=== PATIENT | female | born 1995 | race Caucasian/White ===

== ENCOUNTER 2017-08-24 20:50 | Emergency (ER) | payer OTHER ==
[~2017-08-24] VITALS: Ht 154.9 cm; Wt 70.3 kg
[~2017-08-24 20:50] MED LIST: BENTYL10 M1 PO; ZOFRAN4 M2 SL
--- NOTE | 2017-08-24 21:03 | ED GI/GU/ABDOMINAL COMPLAINT ---
History of Present Illness General Chief Complaint: Abdominal Pain/Flank Pain Stated Complaint: R SIDED ABD PAIN, +NV Source: patient Exam Limitations: no limitations Vital Signs & Intake/Output Vital Signs & Intake/Output Vital Signs Date Time Temp Pulse Resp B/P B/P Pulse O2 O2 Flow FiO2 Mean Ox Delivery Rate 08/25 0220 98.0 88 20 126/78 98 Room Air 08/25 0143 97.1 101 20 127/58 98 Room Air 08/24 2054 97.5 96 16 119/75 98 Room Air ED Intake and Output 08/25 0000 08/24 1200 Intake Total 1000 Output Total Balance 1000 Intake, IV 1000 Patient 155 lb Weight Allergies Coded Allergies: NO KNOWN ALLERGIES (11/16/15) Triage Note: 22 YEAR OLD FEMALE STATES THAT ABOUT 1 HOUR AGO SHE STARTED WITH A SHARP CONSTANT PAIN RUQ, AND VOMITTING . HAS HISTORY OF OVARIAN CYST Triage Nurses Notes Reviewed? yes ? N Is pt currently ? No Onset: Abrupt Duration: constant Timing: single episode today Quality/Severity: sharpness, severe Severity Numbers: 7 Location: right lower quadrant, right upper quadrant Radiation: no radiation HPI: Patient is a 22-year-old female who presents emergency room stating that for lunch patient 8 chicken and salad where proximal and 45 minutes later she had a gradual onset of right upper quadrant and right lower quadrant abdominal pain with 2 episodes of vomiting nonbilious nonbloody, patient does state that she had mild loose watery diarrhea production 1 since symptoms began with no blood no melena noted. Patient currently is menstruating. Patient denies any chest pain shortness of breath back pain dysuria hematuria Denies any significant NSAID use or alcohol use (Merry SALCIDO,Maurice) Reconcile Medications Dicyclomine Hydrochloride (Bentyl) 10 MG CAPSULE 1 TAB PO TID GASTRITIS Meloxicam 15 MG TABLET 15 MG DAILY RSD (Reported) Omeprazole Magnesium (Prilosec Otc) 20 MG TABLET.DR 1 TAB PO DAILY stomach upset Ondansetron HCl (Zofran) 4 MG TABLET 1 TAB SL Q4-6 PRN NAUSEA (Candi BARAKAT,Ronny Weems) Past History Travel History Traveled to [place] past 21 day No Medical History Any Pertinent Medical History? 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 No (Maurice Carlton) Review of Systems Review of Systems Constitutional: Reports: no symptoms. EENTM: Reports: no symptoms. Respiratory: Reports: no symptoms. Cardiovascular: Reports: no symptoms. GI: Reports: see HPI, abdominal pain. Genitourinary: Reports: no symptoms. Musculoskeletal: Reports: no symptoms. Skin: Reports: no symptoms. Neurological/Psychological: Reports: no symptoms. Hematologic/Endocrine: Reports: no symptoms. Immunologic/Allergic: Reports: no symptoms. All Other Systems: Reviewed and Negative (Maurice Carlton) Physical Exam Physical Exam General Appearance: mild distress Head: atraumatic Eyes: Bilateral: normal appearance. Ears, Nose, Throat, Mouth: hearing grossly normal Neck: normal inspection Respiratory: normal breath sounds, chest non-tender Cardiovascular: regular rate/rhythm Gastrointestinal: RUQ/RLQ ABDOMINAL PAIN NO REBOUND TENDERNESS Extremities: normal range of motion Neurologic/Psych: no motor/sensory deficits, awake Skin: intact, normal color, warm/dry Core Measures ACS in differential dx? No Sepsis Present: No Sepsis Focused Exam Completed? No (Maurice Carlton) Progress Differential Diagnosis: appendicitis, biliary colic, bowel obstruction, colon cancer, cholecystitis, diverticulitis, ectopic , endometritis, esophageal varices, gastritis, hepatitis, hernia, hemorrhoids, ischemic bowel, inflamm bowel dis, intrauterine , kidney stone, ovarian cyst, ovarian torsion, pancreatitis, PID/cervicitis, peptic ulcer, PUD/GERD, perforated viscous, SBO, threatened AB, UTI/pyelo Plan of Care: Orders Procedure Date/time Status Add-on Test (ER Only) 08/24 2137 Active HUMAN BETA HCG SCREEN 08/24 2106 Complete URINALYSIS 08/24 2052 Complete LACTIC ACID 08/24 2052 Complete COMPREHENSIVE METABOLIC PANEL 08/24 2052 Complete CBC WITHOUT DIFFERENTIAL 08/24 2052 Complete Laboratory Tests 08/24/17 2353: Lactic Acid Cancelled 08/24/17 2349: Urine Color STRAW, Urine Clarity CLEAR, Urine pH 7.5, Ur Specific [place] 1.010, Urine Protein NEG, Urine Ketones 15 H, Urine Nitrite NEG, Urine Bilirubin NEG, Urine Urobilinogen 0.2, Ur Leukocyte Esterase NEG, Ur Microscopic EXAM NOT REQUIRED, Urine Hemoglobin NEG, Urine Glucose NEG 08/24/17 2107: Anion Gap 13, Estimated GFR > 60, BUN/Creatinine Ratio 12.9, Glucose 106 H, Lactic Acid 0.7, Calcium 8.9, Total Bilirubin 0.5, AST 26, ALT 26, Alkaline Phosphatase 66, Total Protein 6.7, Albumin 4.3, Globulin 2.4, Albumin/Globulin Ratio 1.8, Total Beta HCG NEGATIVE, CBC w Diff NO MAN DIFF REQ, RBC 4.70, MCV 85.6, MCH 28.6, MCHC 33.4, RDW 13.0, MPV 7.5, Gran % 48.3, Lymphocytes % 38.3, Monocytes % 10.6 H, Eosinophils % 2.4, Basophils % 0.4, Absolute Granulocytes 2.3, Absolute Lymphocytes 1.8, Absolute Monocytes 0.5, Absolute Eosinophils 0.1, Absolute Basophils 0 Patient on initial examination showing mild distress and has concerns of right upper quadrant and right lower quadrant abdominal pain patient was afebrile blood work was reviewed showing unremarkable findings discussed risks and benefits of CT scan with patient and family member and which CT scan was performed showing unremarkable findings. Patient had intermittent relief of abdominal pain with morphine however nausea still persisted Reglan was administered with ketorolac Patient will be reevaluated 0032 patient noted to be vomiting nonbloody nonbilious emesis PHENERGAN was administered- SIGNED OUT PT WITH DR. CHRISTOPHER Diagnostic Imaging: Viewed by Me: CT Scan. Radiology Impression: no acute abnormality, no fracture, no dislocation Initial ED EKG: none Hand-Off Endorsed To: Ronny Christopher MD Endorsed Time: 010 Comments: PRESENT AGE: 22 PATIENT ACCOUNT NO: [id number] : 94 LOCATION: [facility] ORDERING PHYSICIAN: Maurice SALCIDO SERVICE DATE: 08/24/17 EXAM TYPE: CAT - CT ABD & PELVIS W IV CONTRAST EXAMINATION: CT ABDOMEN AND PELVIS WITH CONTRAST CLINICAL INFORMATION: Right lower quadrant right upper quadrant pain. Nausea vomiting. COMPARISON: Prior CT October 2015. TECHNIQUE: Multidetector volumetric imaging was performed of the abdomen and pelvis following IV administration of 98 mL of Optiray 320 intravenous contrast. Sagittal and coronal reformatted images were obtained on the technologist's workstation. DLP: 318 mGy-cm FINDINGS: LUNG BASES: The visualized lung bases are unremarkable. LIVER, GALLBLADDER, AND BILIARY TREE: The liver is normal in size, shape, and attenuation. No focal hepatic lesion or biliary ductal dilatation is present. The gallbladder is unremarkable with no evidence of radiopaque gallstones, gallbladder wall thickening, or obvious pericholecystic inflammatory changes. PANCREAS: Unremarkable. SPLEEN: Unremarkable. ADRENAL GLANDS: Unremarkable. KIDNEYS AND URETERS: The kidneys are normal in size, shape, and attenuation. No hydronephrosis, hydroureter, or calculi seen. No perinephric stranding. BLADDER: Unremarkable. GASTROINTESTINAL TRACT: The small and large bowel are unremarkable. The appendix is unremarkable. ABDOMINAL WALL: No significant hernia is appreciated. LYMPH NODES: Normal. VASCULAR: Unremarkable. PELVIC VISCERA: Unremarkable. OSSEOUS STRUCTURES: Unremarkable. IMPRESSION: No significant abnormality. No change DICTATED BY: Ezequiel Dangelo MD DATE/TIME DICTATED:08/24/172230 CUT OUT OPERATOR:YUSRA DATE/TIME TRANSCRIBED:08/24/172230 (Maurice Carlton) Departure Departure Disposition: STILL A PATIENT Condition: Stable Clinical Impression Primary Impression: Abdominal pain Secondary Impressions: Nausea & vomiting Referrals: Daisy BARAKAT,Wei Montes MD,Tyron Departure Forms: Customer Survey General Discharge Information (Maurice Carlton) Departure Prescriptions: Current Visit Scripts Dicyclomine Hydrochloride (Bentyl) 1 TAB PO TID #9 Ondansetron HCl (Zofran) 1 TAB SL Q4-6 PRN NAUSEA #15 Omeprazole Magnesium (Prilosec Otc) 1 TAB PO DAILY #30 TAB PA/SCRIPT GIRL Co-Sign Statement Statement: ED Attending supervision documentation- [x] I saw and evaluated the patient. I have also reviewed all the pertinent lab results and diagnostic results. I agree with the findings and the plan of care as documented in the PA's/SCRIPT GIRL's documentation. 08/25/17, 2:45am... pt with reproducible right lower rib cage tenderness. no gomez's sign, no ruq or rlq tenderness.... ct scan and labs are benign... discussed at length... pt with likely benign course. ... rx for supportive medications... pt safe for discharge. close follow up advised. [] I have reviewed the ED Record and agree with the PA's/SCRIPT GIRL's documentation. [] Additions or exceptions (if any) to the PAs/SCRIPT GIRL's note and plan are summarized below: [] (Candi BARAKAT,Ronny Weems)
[2017-08-24 21:14] LABS: ABSOLUTE BASOPHIL COUNT 0 /CUMM (0.0-0.2); ABSOLUTE EOSINOPHIL COUNT 0.1 /CUMM (0.0-0.7); ABSOLUTE GRANULOCYTE CT 2.3 /CUMM (1.4-6.5); ABSOLUTE LYMPH COUNT 1.8 /CUMM (1.2-3.4); ABSOLUTE MONOCYTE COUNT 0.5 /CUMM (0.10-0.60); BASOPHIL % 0.4 % (0.0-2.0); EOSINOPHIL % 2.4 % (0-5); GRANULOCYTE % 48.3 % (42.2-75.2); HEMATOCRIT 40.3 % (37-47); MEAN CORPUSCULAR HGB 28.6 PG (27.0-31.0); MEAN CORPUSCULAR HGB CONC 33.4 G/DL (33.0-37.0); MEAN CORPUSCULAR VOLUME 85.6 FL (81.0-99.0); MEAN PLATELET VOLUME 7.5 FL (7.4-10.4); PLATELET COUNT 219 /CUMM (130-400); WHITE BLOOD CELL COUNT 4.7 /CUMM (4.8-10.8)
[2017-08-24] MEDS ORDERED: MELOXICAM15 M1 (21:35)
--- NOTE | 2017-08-24 22:42 | CT SCAN REPORT ---
EXAMINATION: CT ABDOMEN AND PELVIS WITH CONTRAST CLINICAL INFORMATION: Right lower quadrant right upper quadrant pain. Nausea vomiting. COMPARISON: Prior CT October 2015. TECHNIQUE: Multidetector volumetric imaging was performed of the abdomen and pelvis following IV administration of 98 mL of Optiray 320 intravenous contrast. Sagittal and coronal reformatted images were obtained on the technologist's workstation. DLP: 318 mGy-cm FINDINGS: LUNG BASES: The visualized lung bases are unremarkable. LIVER, GALLBLADDER, AND BILIARY TREE: The liver is normal in size, shape, and attenuation. No focal hepatic lesion or biliary ductal dilatation is present. The gallbladder is unremarkable with no evidence of radiopaque gallstones, gallbladder wall thickening, or obvious pericholecystic inflammatory changes. PANCREAS: Unremarkable. SPLEEN: Unremarkable. ADRENAL GLANDS: Unremarkable. KIDNEYS AND URETERS: The kidneys are normal in size, shape, and attenuation. No hydronephrosis, hydroureter, or calculi seen. No perinephric stranding. BLADDER: Unremarkable. GASTROINTESTINAL TRACT: The small and large bowel are unremarkable. The appendix is unremarkable. ABDOMINAL WALL: No significant hernia is appreciated. LYMPH NODES: Normal. VASCULAR: Unremarkable. PELVIC VISCERA: Unremarkable. OSSEOUS STRUCTURES: Unremarkable. IMPRESSION: No significant abnormality. No change
[2017-08-25] MEDS ORDERED: BENTYL10 M1 PO (01:05)
[2017-08-25] MEDS ORDERED: ZOFRAN4 M2 SL (01:05)
[2017-08-25 02:20] VITALS: BP 126/78
[2017-08-25] MEDS ORDERED: PRILOSEC OTC20 M1 PO (02:41)
== END 2017-08-25 02:50 ==
LOC: ERH 20:50
PROVIDERS: Emergency Medicine
DX: R10.11 Right upper quadrant pain (principal); R10.31 Right lower quadrant pain; R11.2 Nausea with vomiting, unspecified
CPT/HCPCS: 74177; 81003; 96374; 96375; 96376; J1885; J2405; J2550; J2765